=== PATIENT | female | born 1980 | race African-American/Black ===

== ENCOUNTER 2020-01-08 19:39 | Emergency (ER) | payer SELFPAY ==
[2020-01-08] MEDS ORDERED: ACETAMINOPHEN 1000 MG/100 ML VIAL (NON FORMULARY) IVPB ONE (20:17)
[2020-01-08] MEDS ORDERED: METOCLOPRAMIDE HCL INJECTION 10 MG/2 ML VIAL IVPUSH ONE (20:17)
[2020-01-08] MEDS ORDERED: SODIUM CHLORIDE 1,000 ML IV STA (20:17)
--- NOTE | 2020-01-08 20:17 | PDOC ---
Rapid Medical Evaluation Time Seen by Provider: 01/08/20 19:40 Medical Evaluation: 01/08/20 20:16 I have performed a brief in-person evaluation of this patient. CC: frontal headache x this AM; PMHx-migraines- feels similar to previous RODRIGUES with similar pattern PE: No focal findings. Orders: urine, meds Patient to proceed to ED for further evaluation. Discharge Disposition - Diagnosis Headache - Referrals - Patient Instructions - Post Discharge Activity
[2020-01-08 20:23] VITALS: BP 128/89; PULSE 83; TEMP 98; BMI 27.2
--- NOTE | 2020-01-08 20:32 | PDOC ---
History of Present Illness - General Chief Complaint: Headache Stated Complaint: HEADACHE Time Seen by Provider: 01/08/20 19:40 History Source: Patient - History of Present Illness Initial Comments: 01/08/20 22:26 39-year-old with history of migraines for last 20 years on and off, patient reports that she was [place]. Had a head CT which was negative. Patient reports not taking nothing for the headache denies nausea, vomiting, photosensitivity. No other medical history. Past History - Medical History Allergies/Adverse Reactions: Allergies Allergy/AdvReac Type Severity Reaction Status Date / Time No Known Allergies Allergy Verified 01/08/20 20:23 Home Medications: Ambulatory Orders NK [No Known Home Medication] 01/08/20 COPD: No - Reproductive History Is Patient Now?: No - Psycho-Social/Smoking History Smoking History: Never smoked - Substance Abuse Hx (Audit-C & DAST Scrn) How often the patient has a drink containing alcohol: Never Score: In Men: 4 or > Positive; In Women: 3 or > Positive: 0 Screen Result (Pos requires Nsg. Audit-10AR): Negative Review of Systems - Review of Systems Able to Perform ROS?: Yes Is the patient limited Spanish proficient: No Constitutional: No: Symptoms Reported, See HPI, Chills, Diaphoresis, Fever, Loss of Appetite, Malaise, Night Sweats, Weakness, Weight Stable, Unintentional Wgt. Loss, Unexplained wgt Loss, Other *Physical Exam - Vital Signs Last Vital Signs Temp Pulse Resp BP Pulse Ox 98 F 83 20 128/89 100 01/08/20 20:17 01/08/20 20:17 01/08/20 20:17 01/08/20 20:17 01/08/20 20:17 - Physical Exam General Appearance: Yes: Appropriately Dressed Respiratory/Chest: positive: Lungs Clear, Normal Breath Sounds Cardiovascular: positive: Regular Rhythm, Regular Rate Gastrointestinal/Abdominal: positive: Normal Bowel Sounds, Tender, Soft Extremity: positive: Normal Capillary Refill, Normal Inspection, Normal Range of Motion Integumentary: positive: Normal Color, Dry, Warm Neurologic: positive: envelope adjuster II-XII NML intact, Fully Oriented, Alert, Normal Mood/Affect, Normal Response, Motor Strength 5/5. negative: Abnormal Cranial NS, Respond to painful stimul, Responsive, EOM Palsy, Facial Droop, Numbness, Sensory Deficit, Finger to Nose, Confused, Disoriented, Depressed Affect, Babinski, Other ED Progress Note - Progress Note Progress Note: 01/09/20 04:05 Migraines P: IVF reglan benadryl tylenol Discharge - Discharge Information Problems reviewed: Yes Clinical Impression/Diagnosis: Headache Qualifiers: Headache type: unspecified Headache chronicity pattern: acute headache Intractability: intractable Qualified Code(s): R51 - Headache Condition: Stable Disposition: HOME - Follow up/Referral Referrals: Manav Guzman MD [Staff Physician] - Call tomorrow - Patient Discharge Instructions Patient Printed Discharge Instructions: DI for Migraine Additional Instructions: Drink plenty of fluids. You may take ibuprofen every 6 hours as needed for pain. It is important that you follow-up with a neurologist for long-term management of your migraines Return to the emergency room for any worsening symptoms - Post Discharge Activity Work/Back to School Note: Back to Work
[2020-01-08] MEDS ORDERED: METOCLOPRAMIDE HCL INJECTION 10 MG/2 ML VIAL ONE (21:00)
[2020-01-08] MEDS ORDERED: ACETAMINOPHEN INJECTION 100 ML IVPB ONE (21:01)
[2020-01-08 21:06] LABS: HCG,QUALITATIVE URINE Negative
[2020-01-08 21:19] LABS: EPI CELLS 12 /uL (0-25.1); HYALINE CASTS 1 /uL (0-3.1); PH,URINE >= 9.0 (5.0-8.0); URINE APPEARANCE CLEAR; URINE BACTERIA 83 /uL (0-1359); URINE BILIRUBIN NEGATIVE (NEGATIVE); URINE COLOR YELLOW; URINE GLUCOSE (UA) NEGATIVE (NEGATIVE); URINE KETONE NEGATIVE (NEGATIVE); URINE LEUK ESTERASE TRACE (NEGATIVE); URINE NITRITE NEGATIVE (NEGATIVE); URINE PROTEIN TRACE (NEGATIVE); URINE RBC 3096 /uL (0-23.9); URINE WBC 33 /uL (0-25.8)
== END 2020-01-08 22:50 | disposition home or self-care (01) ==
LOC: JER 19:39
PROC: 3E0333Z Introduction of Anti-inflammatory into Peripheral Vein, Percutaneous Approach (ICD-10-PCS; principal; 2020-01-08)
PROC: 3E033GC Introduction of Other Therapeutic Substance into Peripheral Vein, Percutaneous Approach (ICD-10-PCS; 2020-01-08)
PROC: 3E0337Z Introduction of Electrolytic and Water Balance Substance into Peripheral Vein, Percutaneous Approach (ICD-10-PCS; 2020-01-08)
DX: R51 Headache (principal)
CPT/HCPCS: 81003; 84703; 99284-25; J0131

== ENCOUNTER 2023-01-30 10:08 | Emergency (ER) | payer OTHER ==
[2023-01-30 10:15] VITALS: BP 108/72; PULSE 85; RESP 18; TEMP 98.8; BMI 30.7
[2023-01-30] MEDS ORDERED: ACETAMINOPHEN 500 MG TABLET (FP) PO ONE (11:36)
[2023-01-30] MEDS ORDERED: ACETAMINOPHEN 500 MG TABLET (FP) ONE (11:59)
[2023-01-30] MEDS ORDERED: MAG HYDROX/AL HYDROX/SIMETH 30 ML UNIT-DOSE CUP PO ONE (12:20)
[2023-01-30] MEDS ORDERED: FAMOTIDINE 20 MG TABLET PO ONE (12:20)
[2023-01-30 12:21] LABS: BASO % 1.3 % (0-2.0); EOS % 3.6 % (0-4.5); HEMATOCRIT 37.9 % (32.4-45.2); HEMOGLOBIN 12.2 GM/dL (10.7-15.3); LYMPH % 37.1 % (8-40); MCH 25.3 pg (25.7-33.7); MCHC 32.2 g/dl (32.0-36.0); MEAN CELL VOLUME 78.5 fl (80-96); MEAN PLT VOLUME 8.9 fl (7.5-11.1); MONO % 15.2 % (3.8-10.2); NEUT % 42.8 % (42.8-82.8); PLATELET COUNT 259 10^3/uL (134-434); RBC 4.83 M/mm3 (3.60-5.2); RDW 16.4 % (11.6-15.6); WHITE BLOOD COUNT 4.3 K/mm3 (4.0-10.0)
[2023-01-30 12:36] LABS: POTASSIUM 4.4 mmol/L (3.5-5.1)
[2023-01-30] MEDS ORDERED: FAMOTIDINE 20 MG TABLET ONE (12:37)
[2023-01-30] MEDS ORDERED: MAG HYDROX/AL HYDROX/SIMETH 30 ML UNIT-DOSE CUP ONE (12:37)
[2023-01-30 12:38] LABS: CALCIUM 8.6 mg/dL (8.5-10.1)
[2023-01-30] MEDS ORDERED: SODIUM CHLORIDE 1,000 ML IV STA (12:38)
[2023-01-30 12:39] LABS: ALBUMIN 3.5 g/dl (3.4-5.0); BLOOD UREA NITROGEN 8.6 mg/dL (7-18)
[2023-01-30 12:42] LABS: CREATININE 0.7 mg/dL (0.55-1.3)
[2023-01-30 12:44] LABS: TOT PROT 6.9 g/dl (6.4-8.2)
[2023-01-30 12:51] LABS: PH,URINE 6.5 (5.0-8.0); URINE APPEARANCE CLEAR; URINE BILIRUBIN NEGATIVE (NEGATIVE); URINE COLOR YELLOW; URINE GLUCOSE (UA) NEGATIVE (NEGATIVE); URINE KETONE NEGATIVE (NEGATIVE); URINE LEUK ESTERASE NEGATIVE (NEGATIVE); URINE NITRITE NEGATIVE (NEGATIVE); URINE PROTEIN NEGATIVE (NEGATIVE); URINE UROBILINOGEN 0.2 mg/dL (0.2-1.0)
== END 2023-01-30 19:15 | disposition home or self-care (01) ==
LOC: JER 10:08
PROC: 3E0337Z Introduction of Electrolytic and Water Balance Substance into Peripheral Vein, Percutaneous Approach (ICD-10-PCS; principal; 2023-01-30)
DX: R10.30 Lower abdominal pain, unspecified (principal); R35.0 Frequency of micturition; N83.202 Unspecified ovarian cyst, left side; D25.9 Leiomyoma of uterus, unspecified
CPT/HCPCS: 36415; 74177-TC; 76830-TC; 80053; 81003; 83690; 84703; 85025; 86780; 99285-25